=== PATIENT | female | born 1950 | race Caucasian/White ===

== ENCOUNTER 2023-11-04 05:39 | Emergency (ER) | payer OTHER, SELFPAY ==
[2023-11-04 05:45] VITALS: BP 222/108
[2023-11-04 06:03] VITALS: BP 211/82
[2023-11-04 06:07] VITALS: BMI 29.8
--- NOTE | 2023-11-04 06:29 | ED.GENMED ---
History of Present Illness
General
Chief Complaint: Blood Pressure Problem
Source: patient
Exam Limitations: none
Time Seen by Provider: 11/04/23 06:14
History of Present Illness
History of Present Illness:
Patient developed a right-sided headache and right-sided neck pain around dinnertime last evening. Persisted and became worse at 2 AM. Took a Vicodin at that time. Is on pain management for chronic low back pain. Noted to have significant
hypertension and presents for evaluation. No neurologic symptoms. No visual issues. No vomiting. Patient does have a history of migraines this feels somewhat like a migraine but mildly different. Denies chest pain shortness of breath or other
complaints
Past History
Past History
ED Past Medical History: HTN, Other (Sciatica) and Other (Migraine)
ED Past Surgical History: Orthopedic
Review of Systems
Review of Systems
All Other Systems: Not applicable
Constitutional: Denies fever or chills
Respiratory: Reports no symptoms
Cardiac: Reports no symptoms
Neurological: Denies dizzy, weakness or numbness
Phy Exam
Physical Exam
Physical Exam:
GENERAL: Alert and oriented in no apparent distress
EYE: Orbits normal. Extraocular muscles intact. Discharge
NECK: Supple, no carotid bruit
ENT: Pharynx without erythema
CARDIAC: Regular rate and rhythm without any obvious murmurs.
LUNGS: Clear breath sounds,normal
ABDOMEN: Soft, without focal tenderness or distention
NEUROLOGICAL: Alert and oriented , cranial nerves II through XII intact. Speech normal. [id number] normal. No drift. Light touch intact.
SKIN: Warm and dry, no rash or lesion, no discoloration, skin intact.
MUSCULOSKELETAL: No edema,no deformity.Good color
PSYCH: Normal and appropriate interaction.
Course
Orders/Labs/Results
Orders:
Orders
11/04/23 06:27
Electrocardiogram (*1) Stat
Reason for Study: Other
Other Reason for Exam: neuro symptoms
CT Head & Neck Angio W/wo IV Urgent
Comment:
Reason For Exam: Right-sided arellano neck pain/systolic hypertension
Cardiac Monitoring- Treatment ONCE
EKG- Treatment ONCE
IV Insert/Care/Rem.- Treatment PRN
Pulse Ox/cont/shift [RESP] Stat
Quantity: 1
11/04/23 06:28
0.9% Sodium Chloride 500 ml [Nss] 500 ml IV BOLUS
Acetaminophen 1000MG/100Ml [Ofirmev] 1,000 mg in 100 ml IV ONCE
Acetaminophen IV Indication:: ED Narcotic Naive Pt-ONCE
Diphenhydramine [Benadryl] 25 mg IV NOW STA
Prochlorperazine [Compazine] 5 mg IV NOW STA
11/04/23 06:42
Basic Metabolic Panel Urgent
Complete Blood Count/With Diff Urgent
Erythrocyte Sed Rate Urgent
Abnormal Lab Results
11/04/23
06:42
Absolute Lymphs (auto) 1.1 L 10^3/uL
(1.2-3.4)
Absolute Monos (auto) 0.8 H 10^3/uL
(0.1-0.6)
Immature Gran % 0.6 H %
(0-0.5)
Monocytes % 14.2 H %
(1.7-9.3)
Sodium 130 L mmol/L
(135-145)
Chloride 91 L mmol/L
(98-107)
Glucose 113 H mg/dl
(70-99)
11/04/23 06:42
11/04/23 06:42
Vital Signs
Initial and Last Documented VS:
Initial Vital Signs
Temp Pulse Resp BP Pulse Ox
97.8 F 84 24 222/108 98
11/04/23 05:45 11/04/23 05:45 11/04/23 05:45 11/04/23 05:45 11/04/23 05:45
Last Documented Vital Signs
Temp Pulse Resp BP Pulse Ox
97.8 F 80 27 197/81 94
11/04/23 05:45 11/04/23 09:00 11/04/23 09:00 11/04/23 09:00 11/04/23 09:00
MDM/Problems Addressed
Differential Diagnosis Includes:
Patient with right-sided head and neck pain. Associated with systolic hypertension. Differential would include intracerebral bleed. Carotid dissection. Migraine with incidental hypertension. Temporal arteritis. Workup in progress
*Radiology
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
*Pulse Oximetry
Patient hypoxic: no
*EKG
Interpreted by ED Provider?: Yes
Interpretation: abnormal
Comparison EKG: no comparison EKG present
Heart Rate: 68
Rate: normal
Rhythm: sinus
Gideon: normal axis
QRS Pattern: wide non-specific
Ischemia: no ischemia
*Haul Driver Interpretation
Rate: normal
Interpretation: normal
Heart Rate: 70
Rhythm: sinus
*Critical Care Note
Total Time (30-74mins, 75-104mins- exclusive of procedures): 35
Update Note
Update Note:
0800... 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 Neurologic exam is normal. Hospitalist and neurology referred. There is discussions about possible referral to tertiary center for possible stenting.
0850... Discussed with neurosurgery at [place]. They recommend going to the ER. Ask about aspirin or heparin now. Hold for now. Awaiting acceptance for transfer. Patient updated
ED Attending Note
-
Portions of this chart may have been created with voice recognition software.� Occasional wrong word or��sound alike� substitutions may have occurred due to the inherent limitations of voice recognition software.
Discharge Plan
Departure
Patient Disposition: Acute Care Hospital
Date of Disposition: 11/04/23
Time of Disposition: 09:03
Discharge Problem:
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
Prescriptions:
No Action
cetirizine 10 MG tablet
10 mg PO HS
hydrochlorothiazide 25 MG tablet
12.5 mg PO DAILY
albuterol sulfate 1 PUFF HFA aerosol inhaler
2 puff inhalation R [id number] PRN (Reason: SOB)
Patient Comments:
patient has not used in over 2 years
Lumigan 1 DROP drops
1 drp ophthalmic (eye) HS
esomeprazole magnesium [Nexium] 20 mg Capsule,Delayed Release(Dr/Ec)
20 mg PO DAILY
budesonide-formoterol [Symbicort] 80-4.5 mcg/actuation Hfa Aerosol Inhaler
2 puff INHALATION ONCE
Celebrex
1 tab PO BID
tizanidine
8 mg PO HS
hydrocodone-acetaminophen 5-325 mg Tablet
1 tab PO HS PRN (Reason: PAIN)
Referrals:
UNKNOWN - PT DOES,NOT KNOW [Unknown Provider] -
Hospital Transfer
Other hospital: [facility]
I certify that the patient requires transfer: Yes
Discussed case with accepting physician: [facility]
Reason for transfer: higher level of care
Interventions
Interventions:
*Risk Screen - Suicide Last Done: 11/04/23 05:45
*General Assessment Last Done: 11/04/23 06:11
*Neglect/Abuse Screening Last Done: 11/04/23 05:45
ED- Fall Risk Assessment Last Done: 11/04/23 06:10
*ED COVID-19 Vaccine History Last Done: 11/04/23 06:11
*Nursing Disposition Last Done: 11/04/23 10:20
ED- Cardiac Assessment Last Done: 11/04/23 06:07
ED- Neurological Assessment Last Done: 11/04/23 06:07
ED- Pulmonary Assessment Last Done: 11/04/23 06:07
Discharge Date and Time
Discharge Date/Time: 11/04/23 10:20
Print Language: ANGOLAN
[2023-11-04] MEDS: COMPAZINE 5 MG IV (06:34)
[2023-11-04] MEDS: BENADRYL 25 MG IV (06:36)
[2023-11-04] MEDS: NSS 500 IV (06:37)
[2023-11-04] MEDS: OFIRMEV 100 IV (06:37)
[2023-11-04 06:56] LABS: % Basophils 0.9 % (0-2); % Eosinophils 3.4 % (0-6); % Immature Granulocytes 0.6 % (0-0.5); % Lymphocytes 21.1 % (20.5-51.1); % Monocytes 14.2 % (1.7-9.3); % Neutrophils 59.8 % (42.2-75.2); Absolute Basophils 0.1 10^3/uL (0-0.2); Absolute Eosinophils 0.2 10^3/uL (0-0.7); Absolute Lymphocytes 1.1 10^3/uL (1.2-3.4); Absolute Monocytes 0.8 10^3/uL (0.1-0.6); Absolute Neutrophils 3.2 10^3/uL (1.4-6.5); Hematocrit 37.6 % (37.0-47.0); Hemoglobin 13.3 g/dL (12.0-16.0); Mean Corp Hgb Conc. 35.4 g/dL (33.0-37.0); Mean Corpuscular Hgb 30.7 pg (27.0-31.0); Mean Corpuscular Volume 86.8 fL (81.0-99.0); Mean Platelet Volume 8.3 fL (7.4-10.4); Nucleated Red Blood Cells % 0 %; Platelet Count 338 10^3/uL (130-400); Red Blood Cell Count 4.33 10^6/uL (4.20-5.40); Red Cell Dist. Width 13.1 % (11.5-14.5); White Blood Cell Count 5.4 10^3/uL (4.8-10.8)
[2023-11-04 07:00] VITALS: BP 217/73
[2023-11-04 07:04] LABS: Blood Urea Nitrogen 14 mg/dl (7-17); Calcium 9.9 mg/dl (8.4-10.2); Carbon Dioxide 28 mmol/L (22-30); Chloride 91 mmol/L (98-107); Estimated Creatinine Clearance 89 ml/min; Glucose 113 mg/dl (70-99); Potassium 3.9 mmol/L (3.5-5.1); Sodium 130 mmol/L (135-145); eGFR > 60.00
[2023-11-04 07:29] LABS: Erythrocyte Sed Rate 2 mm/hour (0-20)
[2023-11-04 07:39] VITALS: BP 191/75
[2023-11-04 08:00] VITALS: BP 175/79
[2023-11-04 09:00] VITALS: BP 197/81
== END 2023-11-04 10:20 | disposition short-term general hospital (02) ==
LOC: EMR 05:39
PROVIDERS: EMERGENCY PHYSICIAN Emergency Medicine; FAMILY PHYSICIAN Nurse Practitioner Family
DX: I65.01 Occlusion and stenosis of right vertebral artery (principal); R51.9 Headache, unspecified; M54.2 Cervicalgia; G89.29 Other chronic pain; M54.50 Low back pain, unspecified; I10 Essential (primary) hypertension; G43.909 Migraine, unspecified, not intractable, without status migrainosus; Z88.8 Allergy status to other drugs, medicaments and biological substances; Z91.048 Other nonmedicinal substance allergy status
CPT/HCPCS: 99291; 96374; 96375 ×2; 70496; 70498; 80048; 85025; 85652; 93005; Q9967